=== PATIENT | female | born 2000 | race Caucasian/White ===

== ENCOUNTER 2025-10-13 07:36 | Inpatient (IN) ==
[2025-10-13] MEDS ORDERED: OXYTOCIN 30 UNITS/NSS 30 UNITS/500 ML BAG IV PRN ×2 (07:39→13:00)
[2025-10-13] MEDS ORDERED: LIDOCAINE 1% LOCAL 20 ML VIAL INFIL PRN (07:39)
[2025-10-13 08:02] LABS: Hematocrit (blood only) 32.1 % (37.0-47.0); Hemoglobin 11.1 g/dL (12.0-16.0); Mean Corpuscular Hemoglobin 31.7 pg (25.0-34.0); Mean Corpuscular Volume 91.7 fL (80.0-100.0); Platelet Count 246 K/uL (130-400); RDW Standard Deviation 46.9 fL (36.4-46.3); Red Blood Count 3.50 M/uL (4.20-5.40); White Blood Count 12.87 K/ul (4.8-10.8)
--- NOTE | 2025-10-13 08:19 | History & Physical Report ---
Date of Service October 13, 2025 Assessment & Plan (1) Encounter for elective induction of labor: Plan Patient is a 25yo female who presents at 40w0d for elective induction of labor. Cvx 4-5/80/-2, will augment with pitocin GBS+, allergy to PCN (from childhood, unclear reaction), cefazolin ordered Epidural PRN Will AROM after antibiotics time Rh neg -rhogam candidate Rubella immune Anticipate Admission and Anticipated Discharge Date Admission Date: October 13, 2025 History of Present Illness Chief Complaint: Scheduled IOL Primary Care Provider: NO PCP Pt is a 25yo female who presents for scheduled elective IOL. complicated by obesity, pap with ASCUS/+HPV, late presentation to care, Rh neg status, anemia, radha hematuria, GBS+ status. Doing well this morning-notes some contractions and mucus discharge. +FM. Allergies Allergy/AdvReac Type Severity Reaction Status Date / Time Penicillins Allergy Intermediate Rash Verified 10/12/25 10:38 Home Medications Medication Instructions Recorded Confirmed Type ferrous sulfate 1 tab PO DAILY 06/18/25 10/13/25 History [id number] 1 tab PO DAILY 06/18/25 10/13/25 History [ Plus] Patient History Medical History (Updated 10/13/25 @ 08:55 by Lydia Mar MD) Encounter for elective induction of labor depression Chicken pox Anemia Surgical History No pertinent past surgical history Family History Grandmother (Maternal) Breast cancer Grandmother (Paternal) Breast cancer Denies family history of Ovarian cancer Colorectal cancer Social History Smoking Status: Former smoker Tobacco Type: E-cigarettes / Vaping Second Hand Exposure: No; Do You Dip or Chew Tobacco: No; Hx Alcohol Use: No Hx Substance Use: No (no use since 2020) Preferred Language: [place] [employer] Required: No Beliefs That Will Affect Care: None marital status: Single marital status details: Wai Fish (26) [phone] Current Living Situation: Family Current Living Situation Comment: Lives with FOB and son, 1 dog current occupational status: unemployed How many Children do You have: 1 Other Information That Helps Us Care for You: No Feels Safe at Home: Yes Safety Concerns: Feels Safe At This Time Assistive Devices: None Review of Systems All systems reviewed & are unremarkable except as noted in HPI & below Physical Exam Constitutional: WD/WN, vitals as above Respiratory: normal respiratory effort Psychiatric: Orientation: alert and oriented x 3 Genitourinary: normal external appearance Manual OB Exam: + cervical dilation 4 cm (4-5cm), + cervical effacement 80% and + station -2 OB Exam Monitor Tracing: + external FHT monitor used, + external uterine monitor used (cxns q2-5min) and + category I (130/mod charly/+accels/no decels) Results & Data Vital Signs (Past 12 Hours) Vital Signs Pulse Resp BP 10/13/25 08:10 108 H 136/72 10/13/25 07:58 16 Coding Level of Care Code None Diagnoses Encounter for elective induction of labor Z34.90
[2025-10-13] MEDS: LACTATED RINGER'S 1,000 ML IV PRN (08:41)
[2025-10-13] MEDS: OXYTOCIN 30 UNITS/NSS 30 UNITS/500 ML BAG IV PRN (09:11)
[2025-10-13] MEDS: fentANYL 2 MCG/ML BUPIVacaine 0.125%-NSS 100ML BAG ONE (10:18)
[2025-10-13] MEDS: BUPIVACAINE 0.25% PF 30 ML VIAL ONE (10:21)
[2025-10-13] MEDS: SODIUM CHLORIDE 0.9% PF INJ 10 ML VIAL ONE (10:21)
[2025-10-13] MEDS: LIDOCAINE 2%/EPINEPHRINE 1:200,000 20 ML PF ONE (10:22)
[2025-10-13] MEDS ORDERED: NALOXONE HCL 1 MG in SODIUM CHLORIDE 0.9% 1,000 ML IV PRN (10:30)
[2025-10-13] MEDS ORDERED: NALBUPHINE HCL INJ 10 MG/ML AMP IV PRN (10:30)
[2025-10-13] MEDS ORDERED: ONDANSETRON INJ 2 MG/ML 2 ML VIAL IV PRN (10:30)
[2025-10-13] MEDS ORDERED: PROMETHAZINE 6.25 MG/50.25 ML BAG IV PRN (10:30)
[2025-10-13] MEDS ORDERED: LIDOCAINE 2% MPF LOCAL 5 ML VIAL EPI PRN (10:30)
[2025-10-13] MEDS ORDERED: diphenhydrAMINE 50 MG/ML VIAL IV PRN (10:30)
[2025-10-13] MEDS ORDERED: ROPIVACAINE 0.5% PF 5 MG/ML 20 ML VIAL EPI PRN (10:30)
[2025-10-13] MEDS ORDERED: fentANYL 2 MCG/ML BUPIVacaine 0.125%-NSS 100ML BAG EPI PRN (10:30)
[2025-10-13] MEDS ORDERED: SODIUM CHLORIDE 0.9% PF INJ 10 ML VIAL EPI PRN (10:30)
[2025-10-13] MEDS ORDERED: BUPIVACAINE 0.25% PF 30 ML VIAL EPI PRN (10:30)
[2025-10-13] MEDS ORDERED: NALOXONE HCL 0.4 MG/1 ML VIAL/CARP IV PRN (10:30)
--- NOTE | 2025-10-13 10:30 | Anesthesiology Consultation ---
Date of Service October 13, 2025 Assessment & Plan Chart Review Chart Review: Patient NOT seen in Pre Admission Testing and Acceptable Risk for Labor Epidural Consults Requested none ASA ASA2 Proposed Anesthesia Anesthesia Type: Labor Epidural Risk / Benefits Reviewed With: PT / POA / Parent / Guardian, Accepts Plan and Informed Consent Obtained History Height/Weight Height: 5 ft 7 in Weight: 113 kg Allergies Allergy/AdvReac Type Severity Reaction Status Date / Time Penicillins Allergy Intermediate Rash Verified 10/12/25 10:38 Medications Home Medications Medication Instructions Recorded Confirmed Last Taken ferrous sulfate 1 tab PO DAILY 06/18/25 10/13/25 2 Days Ago ~10/11/25 [id number] 1 tab PO DAILY 06/18/25 10/13/25 1 Day Ago [ Plus] ~10/12/25 Active Medications Generic Name Dose Route Start Last Admin Trade Name Freq PRN Reason Stop Dose Admin Oxytocin 30 units in 500 mls @ 2 mls/hr 10/13/25 07:39 10/13/25 09:11 Pitocin 30 Units/Nss IV 10/15/25 07:38 0.12 units/hr .Q24H PRN 2 mls/hr Labor Induction/Augmentation Administration Protocol 0.12 UNITS/HR Lactated Ringer's 1,000 mls @ 125 mls/hr 10/13/25 07:39 10/13/25 09:55 Lr IV 10/15/25 07:38 999 mls/hr .Q8H PRN Infusion L&D Protocol Protocol Past Medical History Medical History (Updated 10/13/25 @ 08:55 by Lydia Mar MD) Encounter for elective induction of labor depression Chicken pox Anemia Exercise / Class Metabolic Activity II 4-5 Yardwork/Stairs/Walk up hill Past Family History Family History Grandmother (Maternal) Breast cancer Grandmother (Paternal) Breast cancer Denies family history of Ovarian cancer Colorectal cancer Past Surgical History Surgical History No pertinent past surgical history Past Anesthesia History No Hx of Anesthesia Complications and No Family Hx of Anesthesia Complications History of PONV No Hx of PONV and No Hx of Motion Sickness Social History Smoking Status: Former smoker Do You Dip or Chew Tobacco: No Hx Alcohol Use: No Hx Substance Use: No (no use since 2020) substance use type: former substance user and methamphetamine Last Used Substance Other:: 2020 Physical Exam Vital Signs Last Vital Signs Pulse 90 10/13/25 10:27 Resp 16 10/13/25 07:58 BP 122/55 L 10/13/25 10:27 Pulse Ox 99 10/13/25 10:27 ENMT Mouth: no dentition abnormality Thyromental Distance: > or= 3.5 Finger Breadths Mallampati Class: II Neck normal visual inspection Respiratory normal respiratory effort Auscultation: lungs clear to auscultation bilaterally Cardiovascular Rate/Rhythm: regular rate and regular rhythm Psychiatric Orientation: alert Testing Laboratory Results 10/13/25 07:49 Blood Type O Negative 10/13/25 07:49
[2025-10-13] MEDS: LIDOCAINE 2%/EPINEPHRINE 1:200,000 20 ML PF EPI STA (11:25)
[2025-10-13] MEDS: SODIUM CHLORIDE 0.9% PF INJ 10 ML VIAL EPI STA (11:25)
[2025-10-13] MEDS: BUPIVACAINE 0.25% PF 30 ML VIAL EPI STA (11:25)
--- NOTE | 2025-10-13 12:43 | Delivery Summary ---
Vaginal Delivery Summary Date of Service October 13, 2025 Vaginal Delivery Summary [facility] Pre-delivery diagnoses: IUP at 40 weeks Post-delivery diagnoses: Same Procedure: Spontaneous vaginal delivery Surgeon: Lydia Mar MD Complications: none Findings: Viable female . Apgars: per nursery. Weight pending, please see nursery records Estimated QBL: 58 cc Description of delivery: The patient progressed to complete with epidural anesthesia. AROM was performed with meconium fluid noted. She then began to push. She spontaneously vaginally delivered a viable from the cephalic presentation. The head delivered followed without delay by anterior shoulder, p osterior shoulder, then by the body. Double nuchal plus body nuchal reduced. The baby was placed on mother's abdomen and a spontaneous cry was heard. Delayed cord clamping was employed, and the cord was doubly clamped and cut. Cord blood was obtained. The placenta was delivered spontaneously intact with a 3-vessel cord. The uterus and vagina were swept of clots and debris. IV pitocin was given. The uterus became firm. The cervix, vagina, and perineum were inspected. No lacerations requiring repair were noted. Excellent hemostasis was observed. The mother and baby are recovering in stable and good condition in the room. Sponge, needle and instrument counts were correct x 2. [facility] Vaginal Delivery Charge Delivery Type Details:
[2025-10-13] MEDS ORDERED: BENZOCAINE 20% SPRY 85 APPLN/85 GM CAN EXT PRN (13:00)
[2025-10-13] MEDS ORDERED: HYDROCORTISONE ACETATE 25 MG SUPP PR PRN (13:00)
[2025-10-13] MEDS ORDERED: DIPHTHER/TETAN/PERTUS Vaccine (Tdap, Adol/Adult) 0.5mL IM ONE (13:00)
--- NOTE | 2025-10-13 13:27 | Anesthesia Procedure Note ---
Date of Service October 13, 2025 Anesthesia Post Epidural Note Vital Signs Vital Signs: Pulse Resp BP Pulse Ox 86 16 155/67 H 100 10/13/25 13:24 10/13/25 12:23 10/13/25 13:24 10/13/25 12:32 Pain Intensity Medial Abdomen: Pain Intensity: 5 Notes Mental Status: alert / awake / arousable Nausea / Vomiting: adequately controlled Pain: adequately controlled Airway Patency, RR, SpO2: stable & adequate BP & HR: stable & adequate Hydration State: stable & adequate Neuraxial Anesthesia: was administered and sensory block is resolving Anesthetic Complications: no major complications apparent and Pt Satisfied with anesthetic care Epidural: Removed without complications and With tip intact
[2025-10-13] MEDS: ACETAMINOPHEN 325 MG TAB PO PRN (15:36)
[2025-10-13] MEDS: IBUPROFEN 600 MG TAB PO PRN (19:31)
[2025-10-13] MEDS: DOCUSATE SODIUM 100 MG CAP PO SCH (20:36)
--- NOTE | 2025-10-14 05:54 | Obstetrical Progress Note ---
Date of Service October 14, 2025 Assessment & Plan (1) care following vaginal delivery: Plan 25 yo post- day 1 s/p Feels well today. Vital signs stable Continue post- care Encourage ambulation and Pain controlled with ibuprofen Hgb stable Discharge home today, follow up with Dr. Mar in 6 weeks. Admission and Anticipated Discharge Date Admission Date: October 13, 2025 Supervising Physician Co-Signing Physician Notes Resident Physician Supervision Note: I interviewed and examined the patient. Discussed with Dr. Wilhelm and agree with findings and plan as documented in the note. Any exceptions or clarifications are listed here: PPD#1 from . Doing well-notes some increased cramping but otherwise feeling well. Normotensive overnight. Uterus firm. Rh neg - baby's blood type also negative so rhogam not needed. Plan for DC home today. PPV in 6 weeks. Documented By: Lydia Mar MD Subjective 25 yo post- day 1 s/p Ambulation: ambulating normally Voiding: no voiding problems Passing Gas:: Yes Passing Stool:: Yes Diet Tolerance:: regular diet Lochia:: Small Feeding Type:: bottle feeding Current Pain Level: 5/10 Resting comfortably this AM in NAD. Denies JEROME, CP, SOB, N/V/D, LE pain/swelling. Review of Systems Review of Systems: All systems reviewed & are unremarkable except as noted in HPI & below Physical Exam Physical Exam: General: patient resting comfortably, NAD, non-toxic in appearance, AA&O x 4, answers questions appropriately. Skin: warm, dry, intact HEENT: NC/AT, anicteric sclera, conjunctiva without injection, moist mucus membranes. Heart: +S1/S2, regular, no m/r/g Lungs: equal air entry bilaterally, no rales/rhonchi/wheezes Abd: +BS, soft, NT/ND, uterine fundus firm 1 FB below umbilicus Ext: warm, no clubbing/cyanosis or edema, Inna's neg. Neuro: nonfocal, patient AA&O x 4, speech intact, no facial droop, moving all extremities on command. Results & Data Vital Signs (Past 12 Hours) Vital Signs Temp Pulse Resp BP Pulse Ox O2 Del Method 10/14/25 03:34 36.7 C 71 20 129/83 Room Air 10/13/25 23:00 36.4 C L 83 18 113/73 96 Room Air 10/13/25 19:42 36.8 C 97 H 18 112/74 96 Room Air Laboratory Results OB Labs: Blood Type O Negative 06/23/25 Antibody Screen NEGATIVE 08/13/25 Hgb 10.6 g/dl (12.0-16.0) L 09/23/25 Hct 31.7 % (37.0-47.0) L 09/23/25 MCV 94.8 fL (80.0-100.0) 06/23/25 Plt Count 303 K/uL (130-400) 06/23/25 Rubella IgG Antibody Immune (Immune) 06/23/25 Treponema pallidum Ab Negative (Negative) 08/13/25 Hep Bs Antigen Negative (Negative) 06/23/25 Hepatitis C Antibody Negative (Negative) 06/23/25 HIV 1&2 Ab/P24 Ag 4thGn Negative (Negative) 06/23/25 Glucose 1 Hr 50 gm 112 mg/dl (70-130) 08/13/25 OB Optional Labs: Chlamydia trachomatis RNA Not Detected (NotDetected) 06/23/25 Neisseria gonorrhoeae RNA Not Detected (NotDetected) 06/23/25 Labs Reviewed: Initial OB Labs Blood Type & RH Antibody Screen HCT/HGB Platelets Hep C IgG 13yrs+ Old Pap Test: 01/06/25 ASCUS/ HPV+, Colpo 02/20/25 Chlamydia Gonorrhea Rubella RPR Urine Culture/Screen HBsAg HIV MCV Ultrasound Early US: 03/21/25= 10w6d Resident Activity Tracking Resident Involvement: Resident Care Provided Care Provided: OB Delivery
[2025-10-14] MEDS: PRENATAL VITAMIN 1 TAB PO SCH (09:49)
[2025-10-14 12:36] VITALS: BP 122/80; PULSE 83; RESP 16; TEMP 98.2; O2SAT 96
== END 2025-10-14 14:35 | disposition home or self-care (01) | DRG 807 ==
LOC: 4S1 07:36 → 4E2 15:04